=== PATIENT | male | born 1970 | race Caucasian/White ===

== ENCOUNTER 2016-08-20 11:53 | Emergency (ER) | payer OTHER ==
[2016-08-20 12:08] VITALS: BP 130/87
--- NOTE | 2016-08-20 12:53 | ED Physician Documentation ---
History of Present Illness - Stated complaint Stated Complaint: INSECT BITE - Chief complaint Chief Complaint: Ext Problem - History obtained from History obtained from: Patient - History of Present Illness Timing: Today Pain level max: 0 Pain level now: 0 Improved by: nothing Worsened by: nothing - Additonal information Additional information: noted redness and swelling to the L elbow. No drainage. No known injury Review of Systems Constitutional: denies: Fever, Chills GI: denies: Abdominal Pain, Vomiting, Diarrhea Skin: denies: Rash Musculoskeletal: denies: Neck pain, Back pain Neurologic: denies: Headache PD PAST MEDICAL HISTORY - Past Medical History Past Medical History: Yes Respiratory: Asthma - Past Surgical History Past Surgical History: Yes General: Cholecystectomy - Present Medications Home Medications: Ambulatory Orders Medication Instructions Recorded Confirmed Montelukast Sodium [Singulair] 10 mg ORAL DAILY 07/10/12 08/20/16 Albuterol 1 neb INH Q6HR PRN 07/10/15 08/20/16 Mometasone/Formoterol [Dulera 100 1 puffs INH BID 07/10/15 08/20/16 Mcg/5 Mcg Inhaler] Sulfamethox/Trimeth 800/160 1 each PO BID #14 tablet 08/20/16 [Bactrim Ds 800/160] - Allergies Allergies/Adverse Reactions: Allergies Allergy/AdvReac Type Severity Reaction Status Date / Time Penicillins AdvReac Anaphylaxis Verified 08/20/16 12:08 - Social History Does the pt smoke?: No Smoking Status: Never smoker Does the pt drink ETOH?: Yes Does the pt have substance abuse?: No - Immunizations Immunizations are current?: Yes - POLST Patient has POLST: No PD ED PE NORMAL - Vitals Vital signs reviewed: Yes - General General: Alert and oriented X 3, No acute distress - Derm Derm: Warm and dry - Extremities Extremities: Other (L elbow, mild erythema tenderness and swelling. no fluctuance. ) - Neuro Neuro: Alert and oriented X 3 - Psych Psych: Normal mood, Normal affect Results - Vitals Vitals: Vital Signs - 24 hr 08/20/16 12:04 Temperature 36.5 C Heart Rate 66 Respiratory 16 Rate Blood Pressure 130/87 H O2 Saturation 99 Oxygen O2 Source Room air PD MEDICAL DECISION MAKING - ED course Complexity details: considered differential, d/w patient ED course: Patient presents to the emergency department with a mild cellulitis of the left elbow. Bedside ultrasound reveals no drainable abscess. Will place on antibiotics for home and follow-up with his doctor. Patient counseled regarding signs and symptoms for which I believe and urgent re-evaluation would be necessary. Patient with good understanding of and agreement to plan and is comfortable going home at this time This document was made in part using voice recognition software. While efforts are made to proofread this document, sound alike and grammatical errors may occur. Departure - Departure Disposition: 01 Home, Self Care Clinical Impression: Cellulitis Qualifiers: Site of cellulitis: extremity Site of cellulitis of extremity: upper extremity Laterality: left Qualified Code(s): L03.114 - Cellulitis of left upper limb Condition: Good Instructions: ED Infec Skin Cellulitis Follow-Up: your,doctor in 3 days for wound check [Other] Prescriptions: Sulfamethox/Trimeth 800/160 [Bactrim Ds 800/160] 1 each PO BID #14 tablet Comments: Take all antibiotics until gone. Return if you worsen. Discharge Date/Time: 08/20/16 13:06
== END 2016-08-20 13:06 | disposition home or self-care (01) ==
LOC: ED 11:53
DX: L03.114 Cellulitis of left upper limb (principal); J45.909 Unspecified asthma, uncomplicated
CPT/HCPCS: 99283

== ENCOUNTER 2018-12-19 08:55 | Emergency (ER) | payer BC, OTHER ==
[2018-12-19] MEDS ORDERED: SODIUM CHLORIDE 0.9% 1,000 ML IV ONE (09:24)
--- NOTE | 2018-12-19 09:26 | ED Physician Documentation ---
PD HPI NVD - Stated complaint Stated Complaint: ABD PX/VOMITING - Chief complaint Chief Complaint: Abd Pain - History obtained from History obtained from: Patient, Family - History of Present Illness Timing - onset: Enter time (0100), Last night Timing - duration: Hours Timing - details: Abrupt onset, Still present Associated symptoms: Abdominal pain Contributing factors: Bad food Improved by: Vomiting Similar symptoms before: Diagnosis (gastroenteritits related to gallbladder disease) Recently seen: Not recently seen - Additonal information Additional information: Previously well 48-year-old male has developed nausea and vomiting beginning about 1:00 in the morning he has had violent vomiting throughout the night and copious amounts. He states that the last thing that he ate was a hamburger at about 11:30 PM. He has had similar incident of vomiting several years ago at that time was related to his gallbladder and he has had his gallbladder out since. He has not had intervening illness. Review of Systems Constitutional: denies: Fever Eyes: denies: Decreased vision Ears: denies: Ear pain Nose: denies: Congestion Throat: denies: Sore throat Cardiac: denies: Chest pain / pressure, Palpitations Respiratory: denies: Dyspnea, Cough GI: reports: Abdominal Pain, Nausea, Vomiting PD PAST MEDICAL HISTORY - Past Medical History Respiratory: Asthma - Past Surgical History Past Surgical History: Yes General: Cholecystectomy - Present Medications Home Medications: Ambulatory Orders Medication Instructions Recorded Confirmed Montelukast Sodium [Singulair] 10 mg ORAL DAILY 07/10/12 08/20/16 Albuterol 1 neb INH Q6HR PRN 07/10/15 08/20/16 Mometasone/Formoterol [Dulera 100 1 puffs INH BID 07/10/15 08/20/16 Mcg/5 Mcg Inhaler] Promethazine [Phenergan] 25 mg PO Q6H PRN #10 tab 12/19/18 - Allergies Allergies/Adverse Reactions: Allergies Allergy/AdvReac Type Severity Reaction Status Date / Time No Known Drug Allergies Allergy Verified 12/19/18 09:42 - Social History Does the pt smoke?: No Smoking Status: Never smoker Does the pt drink ETOH?: Yes Does the pt have substance abuse?: No - Immunizations Immunizations are current?: Yes - POLST Patient has POLST: No PD ED PE NORMAL - Vitals Vital signs reviewed: Yes (tachy ) - General General: Alert and oriented X 3, No acute distress, Well developed/nourished - HEENT HEENT: Atraumatic, PERRL, EOMI, Other (dry mucous membranes ) - Neck Neck: Supple, no meningeal sign, No bony TTP - Cardiac Cardiac: No murmur, Other (tachy to 110) - Respiratory Respiratory: No respiratory distress, Clear bilaterally - Abdomen Abdomen: Soft, Other (mild general tenderness without garding ) - Back Back: No CVA TTP, No spinal TTP - Derm Derm: Normal color, Warm and dry, No rash - Extremities Extremities: No deformity, No edema - Neuro Neuro: Alert and oriented X 3, examination supervisor 2-12 intact, No motor deficit, No sensory deficit, Normal speech Eye Opening: Spontaneous Motor: Obeys Commands Verbal: Oriented GCS Score: 15 - Psych Psych: Normal mood, Normal affect Results - Vitals Vitals: Vital Signs - 24 hr 12/19/18 12/19/18 12/19/18 09:02 10:43 12:46 Temperature 36.8 C Heart Rate 109 H 89 84 Respiratory 20 20 18 Rate Blood Pressure 128/72 138/90 H 132/78 H O2 Saturation 94 96 98 Oxygen O2 Source Room air - Labs Labs: Laboratory Tests 12/19/18 12/19/18 09:40 09:40 WBC 14.7 H RBC 5.79 Hgb 16.9 Hct 50.5 MCV 87.2 MCH 29.2 MCHC 33.5 RDW 12.4 Plt Count 209 MPV 11.3 Neut # (Auto) 13.5 H Lymph # (Auto) 0.3 L [place] # (Auto) 0.8 Eos # (Auto) 0.1 Baso # (Auto) 0.1 Absolute Nucleated RBC 0.00 Nucleated RBC % 0.0 Sodium 143 Potassium 4.3 Chloride 100 L Carbon Dioxide 30 Anion Gap 13.0 BUN 32 H Creatinine 1.2 Estimated GFR (MDRD) 65 L Glucose 129 H Calcium 9.0 Total Bilirubin 1.1 H AST 23 ALT 24 Alkaline Phosphatase 50 Total Protein 8.2 Albumin 4.6 Globulin 3.6 Albumin/Globulin Ratio 1.3 Lipase 34 PD MEDICAL DECISION MAKING - ED course Complexity details: reviewed results, re-evaluated patient, considered differential, d/w patient, d/w family ED course: 48-year-old male with acute vomiting has likely food poisoning by history and he appears to have had a violent illness with a lot of vomiting he is now a bit dehydrated he is administered intravenous saline and Phenergan. He received 2 doses of Phenergan and is quite sleepy at the time he leaves the emergency department. Departure - Departure Disposition: 01 Home, Self Care Clinical Impression: Gastroenteritis Condition: Stable Instructions: ED Food Poison Or Gastroenteritis Follow-Up: SOM HAYNES MD [Primary Care Provider] - Prescriptions: Promethazine [Phenergan] 25 mg PO Q6H PRN #10 tab PRN Reason: Nausea / Vomiting Discharge Date/Time: 12/19/18 13:03
[2018-12-19] MEDS: PROMETHAZINE INJ 25 MG in SODIUM CHLORIDE 0.9% 50 ML IV STA ×2 (09:38→11:21)
[2018-12-19 09:51] LABS: BASOPHILS # (AUTO) 0.1 10^3/uL (0.0-0.1); BASOPHILS % (AUTO) 0.3 %; EOSINOPHILS # (AUTO) 0.1 10^3/uL (0.0-0.7); EOSINOPHILS % (AUTO) 0.6 %; HGB - HEMOGLOBIN 16.9 g/dL (14.0-18.0); LYMPHOCYTES # (AUTO) 0.3 10^3/uL (1.5-3.5); MEAN CORPUSCULAR HEMOGLOBIN 29.2 pg (27.0-31.0); MEAN CORPUSCULAR HGB CONC 33.5 g/dL (32.0-36.0); MEAN CORPUSCULAR VOLUME 87.2 fL (80.0-94.0); MEAN PLATELET VOLUME 11.3 fL (7.4-11.4); MONOCYTES # (AUTO) 0.8 10^3/uL (0.0-1.0); MONOCYTES % (AUTO) 5.2 %; NEUTROPHILS # (AUTO) 13.5 10^3/uL (1.5-6.6); NEUTROPHILS % (AUTO) 91.5 %; PLT - PLATELET COUNT 209 10^3/uL (130-450); RED BLOOD COUNT 5.79 10^6/uL (4.70-6.10); RED CELL DISTRIBUTION WIDTH 12.4 % (12.0-15.0); WHITE BLOOD COUNT 14.7 x10^3/uL (4.8-10.8)
[2018-12-19 09:59] LABS: ALBUMIN 4.6 g/dL (3.2-5.5); ALBUMIN/GLOBULIN RATIO 1.3 (1.0-2.2); BILIRUBIN,TOTAL 1.1 mg/dL (0.2-1.0); CREATININE 1.2 mg/dL (0.6-1.2); TOTAL PROTEIN 8.2 g/dL (6.7-8.2)
[2018-12-19] MEDS ORDERED: PROMETHAZINE INJ 25 MG in SODIUM CHLORIDE 0.9% 50 ML IV STA (11:14)
[2018-12-19 12:46] VITALS: BP 132/78
== END 2018-12-19 13:03 | disposition home or self-care (01) ==
LOC: ED 08:55
DX: K52.9 Noninfective gastroenteritis and colitis, unspecified (principal); E86.0 Dehydration
CPT/HCPCS: 36415; 80053; 83690; 85025; 96365; 96375; 99283; 99284; J7040